=== PATIENT | male | born 1930 | race Caucasian/White ===

== ENCOUNTER → 2017-01-08 | Outpatient (CLI) | payer OTHER ==
[~2017-01-08] MED LIST: ADULT LOW DOSE81 MG PO; COMBIGAN EYE DR10 ML OPHTHALMIC; GLUCOSAMINE &1 EACH PO; LIPITOR40 MG PO; MULTIVITAMINS PO; PRINZIDE 20-251 EACH PO; TOPROL XL200 MG PO; VITAMIN D1000 UNI1 PO; XALATAN2.5 ML OP
== END ==
LOC: PUL 09:43
DX: Z79.899 Other long term (current) drug therapy (principal)

== ENCOUNTER → 2017-04-21 | Outpatient (CLI) | payer OTHER ==
--- NOTE | ~2017-04-21 | 2DMMODE ---
[facility] [address] [place] [address] 2 D/M-MODE ECHOCARDIOGRAM Name: BO FLORES TACOMA [id number] Admission: 04/21/17 Attend Phys: Jaxon Aponte Discharge: Date of : [birth year] Date of Service: 04/21/17 1413 Report #: [id number] THIS REPORT FOR: //name// APPROVED REPORT Study performed: 04/21/2017 11:04:48 EXAM: Comprehensive 2D, Doppler, and color-flow Echocardiogram Patient Location: Echo lab Status: routine BSA: 1.69 HR: 50 bpm BP: 164/94 mmHg Other Information Study Quality: Adequate Indications CAD Hypertension/HDD ICD. 2D Dimensions RVDd: 30.30 mm LVEF(%): 25.28 (>50%) IVSd: 10.28 (7-11mm) LVOT Diam: 19.03 (18-24mm) LVDd: 45.65 mm PWd: 6.29 (7-11mm) Ascending Ao: 28.26 (22-36mm) LVDs: 40.34 (25-40mm) Aortic Root: 30.58 mm IVC: 21.00 mm Murphy's LVEF: 25.28 % Volumes Left Atrial Volume (Systole) Single Plane 4CH: 78.12 mL Single Plane 2CH: 52.29 mL LA ESV Index: 41.00 mL/m2 Aortic Valve AoV Peak Ming.: 1.08 m/s AO Peak Gr.: 5.00 mmHg LVOT Max P.67 mmHg AO Mean Gr.: 1.80 mmHg LVOT Mean P.87 mmHg AO V2 Mean: 0.60 m/s LVOT Max V: 0.70 m/s AO V2 VTI: 22.51 cm LVOT Mean V: 0.43 m/s RALPH (VTI): 2.17 cm2 LVOT V1 VTI: 17.17 cm RALPH Vmax: 1.84 cm2 [facility] [address] [place] [address] 2 D/M-MODE ECHOCARDIOGRAM Name: BO FLORES TACOMA Room #: REG [facility]#: [id number] Admission: 04/21/17 Attend Phys: Jaxon Aponte Discharge: Date of : [birth year] Date of Service: 04/21/17 1413 Report #: [id number] Vmax: 3.33 m/s SV (LVOT): 48.83 mL AI Mercer: 1.78 m/s2 AI PHT: 674.59 ms Mitral Valve E/A Ratio: 1.5 MV Decel. Time: 91.37 ms MV E Max Ming.: 0.57 m/s MV A Ming.: 0.38 m/s MV PHT: 26.50 ms IVRT: 133.79 ms Pulmonary Valve PV Peak Ming.: 0.56 m/s PV Peak Gr.: 1.24 mmHg Tricuspid Valve TR Peak Ming.: 3.18 m/s TR Peak Gr.: 40.48 mmHg PA Pressure: 51.00 mmHg Left Ventricle The left ventricle is normal size. There is global hypokinesis of the left ventricle. There is normal left ventricular wall thickness. Left ventricular systolic function is mildly decreased. LVEF is 40-45%. Right Ventricle The right ventricle is normal size. The right ventricular systolic function is normal. Device lead is present in the right ventricle. Atria Left atrium is dilated. Small PFO is noted with colorflow doppler. The right atrium size is normal. Device lead is present in the right atrium. Aortic Valve The aortic valve is normal in structure. Aortic valve is calcified. Trace to mild aortic regurgitation. Very mild aortic stenosis. Mitral Valve The mitral valve is normal in structure. Mild mitral regurgitation. No evidence of mitral valve stenosis. Tricuspid Valve The tricuspid valve is normal in structure. [place] [address] 2 D/M-MODE ECHOCARDIOGRAM Name: BO FLORES Room #: REG Young#: [id number] Admission: 04/21/17 Attend Phys: Jaxon Aponte Discharge: Date of : [birth year] Date of Service: 04/21/17 1413 Report #: [id number] regurgitation. The right atrial pressure is estimated at mmHg. There is moderate pulmonary hypertension. Pulmonic Valve The pulmonary valve is normal in structure. There is no pulmonic valvular regurgitation. Great Vessels The aortic root is normal in size. IVC is dilated and collapses >50% with inspiration. Pericardium There is no pericardial effusion. <Conclusion> The left ventricle is normal size. There is global hypokinesis of the left ventricle. LVEF is 40-45%. Left atrium is dilated. The right atrium size is normal. Device lead is present in the right atrium. Small PFO is noted with colorflow doppler. The aortic valve is normal in structure. Aortic valve is calcified. Trace to mild aortic regurgitation. Very mild aortic stenosis. The mitral valve is normal in structure. Mild mitral regurgitation. The tricuspid valve is normal in structure. There is trace tricuspid regurgitation. The right atrial pressure is estimated at mmHg. There is moderate pulmonary hypertension. The pulmonary valve is normal in structure. There is no pericardial effusion. <ELECTRONICALLY SIGNED> By: Lasha Issa MD 04/21/17 1413 [id number] Lasha Issa MD /INF
== END ==
LOC: CV 06:18
DX: I25.5 Ischemic cardiomyopathy (principal); I25.10 Atherosclerotic heart disease of native coronary artery without angina pectoris; I10 Essential (primary) hypertension; I35.0 Nonrheumatic aortic (valve) stenosis; I34.0 Nonrheumatic mitral (valve) insufficiency